=== PATIENT | female | born 1980 | race Native Hawaiian/Other Pacific Islander ===

== ENCOUNTER 2017-05-27 09:31 | Inpatient (IN) | payer OTHER ==
[2017-05-27] MEDS ORDERED: Lactated Ringer's 1,000 ML IV SCH (09:45)
[2017-05-27 10:48] LABS: BASO # 0.1 K/uL (0.0-0.2); BASO % 0.7 % (0.0-2.0); EOS # 0.1 K/uL (0.0-0.7); EOS % 0.7 % (0.0-4.0); HEMATOCRIT 40.3 % (34.0-47.0); LYMPH # 1.4 K/uL (1.0-4.3); LYMPH % 13.5 % (20.0-40.0); MEAN CELL VOLUME 93.5 fL (81.0-99.0); MEAN CORPUSCULAR HEMOGLOBIN 31.3 pg (27.0-31.0); MEAN CORPUSCULAR HGB CONC 33.5 g/dL (33.0-37.0); MEAN PLATELET VOLUME 7.3 fL (7.2-11.7); MONO # 0.8 K/uL (0.0-0.8); MONO % 7.8 % (0.0-10.0); RED CELL DISTRIBUTION WIDTH 13.6 % (11.5-14.5); WHITE BLOOD COUNT 10.6 K/uL (4.8-10.8)
[2017-05-27 10:55] LABS: CHLORIDE 104 mmol/L (98-107); SODIUM 131 mmol/L (132-148)
[2017-05-27 10:56] LABS: POTASSIUM 4.1 mmol/L (3.6-5.2)
[2017-05-27 10:58] LABS: ALB/GLOB RATIO 1.2 (1.0-2.1); ALKALINE PHOSPHATASE 186 U/L (38-126); ALT/SGPT 45 U/L (9-52); AST/SGOT 26 U/L (14-36); BILIRUBIN,TOTAL 0.6 mg/dL (0.2-1.3); BLOOD UREA NITROGEN 14 mg/dL (7-17); CARBON DIOXIDE 18 mmol/L (22-30); GFR AFRICAN-AMERICAN > 60; GLUCOSE,RANDOM 80 mg/dL (65-105); TOTAL PROTEIN 6.4 g/dL (6.3-8.3)
[2017-05-27 10:59] LABS: CALCIUM 8.6 mg/dl (8.6-10.4)
[2017-05-27 11:06] LABS: RBC URINE 505 /hpf (0-3); URINE BACTERIA RARE (<OCC); URINE BILIRUBIN NEGATIVE (NEGATIVE); URINE BLOOD 3+ (NEGATIVE); URINE COLOR Yellow (YELLOW); URINE GLUCOSE (UA) NORMAL (Normal); URINE KETONE NEGATIVE (NEGATIVE); URINE LEUKOCYTE ESTERASE 1+ Leu/uL (Negative); URINE PROTEIN 2+ mg/dL (NEGATIVE); URINE UROBILINOGEN NORMAL mg/dL (0.2-1.0)
[2017-05-27 11:07] LABS: WBC URINE 7 /hpf (0-5)
[2017-05-27] MEDS ORDERED: Bupivacaine 0.125%/FentaNYL 200 ML EPI ONE (11:32)
[2017-05-27] MEDS ORDERED: Bupivacaine HCl 0.25% PF (10 ml) Inj ONE (11:32)
[2017-05-27] MEDS ORDERED: Oxytocin 20 units in LR 2,000 ML IV ONE (14:20)
[2017-05-27] MEDS ORDERED: Lidocaine 2% Inj (20ml) ONE (14:21)
--- NOTE | 2017-05-27 15:14 | OBADHP ---
Datetime: 05/27/2017 15:13 Vital Signs Provider: Reviewed; Within Normal Limits Datetime: 05/27/2017 09:48 Admit Comment, IP Provider: Patient is a 36 year old at 38 weeks 4 days CAITLIN 06/06/17 by LMP 08/30 presents to L+D with a chief complaint of cramping lasting 30 seconds that is intermittent every 2-3 minutes since 0200 this AM. She also reports that she has noticed small amounts of blood and rajat r mucus since this morning as well. Endorses +FM, denies LOF. She denies fever, chills, headache, tita st pain, SOB, N/V, diarrhea, burning with urination or any seizures. 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 Stable, afebrile 2. CEFM and TOCO 3. Admission labs - CBC, CMP, TS, UA 4. GBS negative - no abx needed at this time 5. Desires epidural - anesthesia notified 6. LR @ 125 cc/hr 7. Anticipate vaginal delivery 8. Plan d/w attending Diana Jama DO PGY-1 agree with above pt seen adn examined in labor admit npo, ivf anestehsi prn cont toco and efm FHR - Baseline A Provider: 135 Contraction Comments Provider: q2 min Comments, ACOG Physical Exam: VSS Gen: AAOx3 Abd: soft, gravid Ext: No clubbing, cyanosis, edema SVE: 4-5/90/-2 EFM: 135, mod variability, +accels, -decels TOCO: q 2min Last US 05/15/17: single IUP, anterior placenta, RYNE 15.5cm, BPP 8/8 IP Chief Complaint: Uterine contractions NICHD Variability Prov Fetus A: Moderate 6-25bpm NICHD Accel Fetus A IP Provider: 15X15 NICHD Decel Fetus A IP Provider: None Dilatation, Provider: 4-5 Effacement, Provider: 90 Station, Provider: -2 EGA AdmitDate IP: 39.1 IP Adm Impression: Term, intrauterine IP Admit Plan: Admit to unit; Initiate labor protocol
[2017-05-27] MEDS ORDERED: Oxytocin 30 UNIT 30 UNITS/500 ML BAG IV SCH ×2 (15:15→17:30)
--- NOTE | 2017-05-27 15:17 | OBHP ---
Datetime: 05/27/2017 15:13 Membranes, Provider: Ruptured Contraction Comments Provider: q 2- 3min Gestation - Est Wks by US: 39.1 Vital Signs Provider: Reviewed; Within Normal Limits Dilatation, Provider: 10 Effacement, Provider: 100 Station, Provider: -1 Datetime: 05/27/2017 09:48 IP Adm Impression: Term, intrauterine IP Admit Plan: Admit to unit; Initiate labor protocol Admit Comment, IP Provider: Patient is a 36 year old at 39 weeks 1 days CAITLIN 06/06/17 by LMP 08/30 presents to L+D with a chief complaint of cramping lasting 30 seconds that is intermittent every 2-3 minutes since 0200 this AM. She also reports that she has noticed small amounts of blood and rajat r mucus since this morning as well. Endorses +FM, denies LOF. She denies fever, chills, headache, tita st pain, SOB, N/V, diarrhea, burning with urination or any seizures. 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 Stable, afebrile 2. CEFM and TOCO 3. Admission labs - CBC, CMP, TS, UA 4. GBS negative - no abx needed at this time 5. Desires epidural - anesthesia notified 6. LR @ 125 cc/hr 7. Anticipate vaginal delivery 8. Plan d/w attending Diana Jama DO PGY-1 agree with above pt seen adn examined in labor admit npo, ivf anestehsi prn cont toco and efm FHR - Baseline A Provider: 135 Comments, ACOG Physical Exam: VSS Gen: AAOx3 Abd: soft, gravid Ext: No clubbing, cyanosis, edema SVE: 4-5/90/-2 EFM: 135, mod variability, +accels, -decels TOCO: q 2min Last US 05/15/17: single IUP, anterior placenta, RYNE 15.5cm, BPP 8/8 EGA AdmitDate IP: 39.1 IP Chief Complaint: Uterine contractions NICHD Variability Prov Fetus A: Moderate 6-25bpm NICHD Accel Fetus A IP Provider: 15X15 NICHD Decel Fetus A IP Provider: None
[2017-05-27] MEDS ORDERED: Benzocaine/Menthol 20%-0.5% Topical Spray (60 ml) TOP PRN (17:26)
[2017-05-27] MEDS ORDERED: Oxycodone/Acetaminophen 5/325 mg Tab PO PRN ×2 (17:26)
--- NOTE | 2017-05-27 17:26 | OBDS ---
DELIVERY PERSONNEL Delivery Doctor: Vandana Levi MD Branch Officer: Angelita Urbano RN Anesthesiologist: Dr. Christian MATERNAL INFORMATION Delivery Anesthesia: Epidural Placenta Cultured: Yes Provider Comments: pt with Categoy II tracing non reassuirng and exhaustion. verbal consent given fo r vacuman assisted delvery. Vacumn applied no cervix, pt pushing, atrumtaic, spotaneous delyver of he a in ibis postion with right mediolateral episotiy 1 pull, vaccum relased, nuchal cord x 1 looseened. atruamtic, spentansou delveyr of anterior followed by poserio fhoulder followed by delie rof body. andie rht oral and nsaal passags of the baby were bucl suctioned. ubmiclal cord clamped and cut. baby hadne d to awaint pediatrian. Cord blood and cord gases collected an sent x 2. sponteanou eliyve rof intac t placentra with membrane. fundus firm, goo dhemostais, second degree perienal lacerationed noted and rpeaired iwth right mediolateral episosty after local aenstehsic lidocoine adminitned with 2-0 and 3 -0 chromic. good hemostaiss, no complicatoind live male infant agpars 9,9 weight of 7lbs 8 ounces ebl 400ml LABOR SUMMARY EDC: 06/02/2017 00:00 No. Babies in Womb: 1 LABOR INFORMATION Group B Beta Strep: Negative MEMBRANES Membranes Rupture Method: Spontaneous Rupture of Membranes: 05/27/2017 13:15 Length of Rupture (hrs): 3.58 Amniotic Fluid Color: Clear Amniotic Fluid Amount: Moderate Amniotic Fluid Odor: Normal STAGES OF LABOR Stage 3 hrs: 0 Stage 3 min: 11 BABY A INFORMATION Delivery Date/Time: 05/27/2017 16:50 Method of Delivery: Vaginal Born in Route : No : N/A Forceps: N/A Vacuum Extraction: Successful Shoulder Dystocia : No SHOULDER DYSTOCIA BABY A Delivery Date/Time: 05/27/2017 16:50 PRESENTATION/POSITION BABY A Presentation: Cephalic Cephalic Presentation: Vertex Breech Presentation: N/A PLACENTA INFORMATION BABY A Placenta Delivery Time : 05/27/2017 17:01 Placenta Method of Delivery: Spontaneous Placenta Status: Delivered SCORES BABY A Heart Rate 1 min: >100 bpm Resp Effort 1 min: Good Cry Reflex Irritability 1 min: Cough or Sneeze or Pulls Away Muscle Tone 1 min: Active Motion Color 1 min: Body [place], Extremities Blue Resuscitation Effort 1 min: N/A SCORE 1 MIN: 9 Heart Rate 5 min: >100 bpm Resp Effort 5 min: Good Cry Reflex Irritability 5 min: Cough or Sneeze or Pulls Away Muscle Tone 5 min: Active Motion Color 5 min: Body Ashkum, Extremities Blue Resuscitation Effort 5 min: N/A SCORE 5 MIN: 9 INFORMATION BABY A Gestational Age at Delivery: 39.1 Gestational Status: Term Outcome : Liveborn Condition : Stable Sex: Male IDENTIFICATION/MEDS BABY A ID Band Number: [id number] WEIGHT/LENGTH BABY A Birthweight (gms): 3395 Weight (lb): 7 Infant Weight (oz): 8 Infant Length Inches: 19.50 Length cms: 49.5 CORD INFORMATION BABY A No. Cord Vessels: 3 ASSESSMENT BABY A Complications: None
[2017-05-28 09:00] LABS: BASO % 0.4 % (0.0-2.0); EOS # 0.1 K/uL (0.0-0.7); MONO # 0.7 K/uL (0.0-0.8); MONO % 5.7 % (0.0-10.0)
[2017-05-28 09:07] LABS: LYMPH # 1.8 K/uL (1.0-4.3); LYMPH % 15.7 % (20.0-40.0); MEAN CELL VOLUME 95.4 fL (81.0-99.0); MEAN CORPUSCULAR HEMOGLOBIN 31.2 pg (27.0-31.0); MEAN CORPUSCULAR HGB CONC 32.7 g/dL (33.0-37.0); MEAN PLATELET VOLUME 7.2 fL (7.2-11.7); RED CELL DISTRIBUTION WIDTH 13.8 % (11.5-14.5); WHITE BLOOD COUNT 11.4 K/uL (4.8-10.8)
[2017-05-28 10:26] VITALS: RESP 18
[2017-05-28] MEDS: Multiple Vitamins Tab PO SCH (10:27)
[2017-05-29 09:03] VITALS: PULSE 59; TEMP 98.4; O2SAT 99
[2017-05-29] MEDS: Multiple Vitamins Tab PO SCH (09:21)
[2017-05-29] MEDS ORDERED: Influenza Vaccine 60 mcg/0.5 mL SYR (4YR UP) IM ONE (09:27)
--- NOTE | 2017-05-29 12:46 | OBPPN ---
Datetime: 05/29/2017 09:51 PP Pain Prov: Within normal limits PP Nausea Prov: Denies PP Flatus Prov: Yes PP BM Prov: Yes PP Impression Prov: Normal progression PP Plan Prov: Continue present management; Discharge PP Progress Note Prov: Patient seen and examined at bedside. Per nursing no acute events overnight. Patient is doing well, pain is controlled. Lochia is mild. Patient is ambulating and tolerating diet. Urinating without difficulty. Breast feeding. Passing flatus and having BM. Denies headaches, dizzin ess, cp, palpitations, sob, urinary symptoms. VS: 107/69 79 98.2 Gen: AAOx3 Abd: Soft, fundus firm Ext: No clubbing, cyanosis, edema; no calf tenderness Labs: 10.6>13.5/40.3<275 11.4>11.1/34.0<249 AB positive Rubella Immune A/P: 36 year old at 39w1d s/p VAVD, second degree perienal laceration with RML episiotomy PPD#2 1. Stable, afebrile 2. Pain control - tylenol and motrin prn 3. Encourage ambulation and hydration 4. Encourage 5. Continue routine care 6. Male infant - desires circ 7. Anticipate discharge home today - pelvic rest x 6 weeks, f/u with Dr Levi in 6 weeks 8. Plan d/w attending Diana Jama DO PGY-1 agree with above rp atel Vital Signs Provider PP: Reviewed; Within Normal Limits
--- NOTE | 2017-05-29 12:49 | OBDCSUM ---
Datetime: 05/29/2017 12:45 Discharged to, Provider: Home Follow up at, Provider: Dr Levi Discharge Instructions, Provider: Routine instructions given Discharge Diagnosis, Provider: Term Delivered Discharge Time: 05/29/2017 12:45 Follow up in weeks, Provider: 6 weeks Disch Activity Restrictions: No sexual activity; Nothing in vagina - [place], tampons, douche Contraception after Delivery: Undecided
--- NOTE | 2017-05-29 13:33 | OBPPN ---
Datetime: 05/29/2017 13:29 PP Pain Prov: Within normal limits PP Nausea Prov: Denies PP Flatus Prov: Yes PP Breasts Prov: Normal PP Heart Prov: Normal PP Lungs Prov: Normal PP Abdomen/Uterus Prov: Normal PP Lochia Prov: Normal PP Vulva/Perineum Prov: Normal PP CVA Tenderness Prov: Normal PP Extremities Prov: Normal PP C/S Incision Prov: Not Applicable PP Progress Prov: Normal PP Progress Note Prov: delayed entry pt seen adn examiend 05/28 @ 8am doign well vss pe see above a/p s/p ppd #`1 doign well -f/u am labs -pain mangent -encouarge breast feedign and mabuaiton Vital Signs Provider PP: Reviewed; Within Normal Limits
[2017-05-30 04:41] VITALS: BP 100/64
== END 2017-05-29 20:20 | disposition home or self-care (01) | DRG 775 ==
LOC: C.EROB 09:31 → C.4D 09:38 → UNDOADMIN 09:42 → C.4D 09:42 → C.4M 19:45
PROVIDERS: ADMIT Obstetrics & Gynecology; ATTEND Obstetrics & Gynecology
PROC: 10D07Z6 Extraction of Products of Conception, Vacuum, Via Natural or Artificial Opening (ICD-10-PCS; principal; 2017-05-27)
PROC: 0KQM0ZZ Repair Perineum Muscle, Open Approach (ICD-10-PCS; 2017-05-27)
PROC: 0W8NXZZ Division of Female Perineum, External Approach (ICD-10-PCS; 2017-05-27)
DX: O69.81X0 Labor and delivery complicated by cord around neck, without compression, not applicable or unspecified (principal); O66.5 Attempted application of vacuum extractor and forceps; O75.81 Maternal exhaustion complicating labor and delivery; O70.1 Second degree perineal laceration during delivery; Z3A.39 39 weeks gestation of pregnancy; Z37.0 Single live birth